=== PATIENT | male | born 2000 | race Two or more races ===

== ENCOUNTER 2019-06-21 02:33 | Emergency (ER) | payer SELFPAY ==
[~2019-06-21] VITALS: Ht 162.6 cm; Wt 59.0 kg
[2019-06-21] MEDS ORDERED: IBUPROFEN 600 MG TAB PO ONE (06:45)
[2019-06-21 06:49] VITALS: BP 108/54
== END 2019-06-21 07:01 | disposition home or self-care (01) ==
LOC: EDBD 02:33 → ER 02:41
DX: S93.492A Sprain of other ligament of left ankle, initial encounter (principal); F12.10 Cannabis abuse, uncomplicated; X50.0XXA Overexertion from strenuous movement or load, initial encounter; Y93.89 Activity, other specified; Y99.8 Other external cause status; Y92.89 Other specified places as the place of occurrence of the external cause
CPT/HCPCS: 73610